=== PATIENT | male | born 1990 | race Two or more races ===

== ENCOUNTER 2023-11-23 12:58 | Emergency (ER) | payer SELFPAY ==
--- NOTE | ~2023-11-23 | CT_ITS ---
EXAMINATION: CT HEAD WITHOUT CONTRAST CLINICAL INFORMATION: Seizure. COMPARISON: No prior imaging is available. TECHNIQUE: Contiguous axial imaging was performed from the skull base to vertex without intravenous administration of contrast. This CT examination was performed using dose optimization techniques as appropriate, variously including the following: *Automated exposure control *Adjustment of mA and/or kV according to patient size (this includes techniques or standardized protocols for targeted exams where dose is matched to indication/reason for exam; i.e. extremities or head) *Use of iterative reconstruction technique DLP: 564 mGy-cm FINDINGS: There is no acute intracranial hemorrhage or abnormal extra-axial collection. No intracranial mass effect or midline shift. Lateral and third ventricles are normal. No hydrocephalus. Ponce-white matter differentiation is preserved and there is no evidence of acute territorial infarct. The calvarium and skull base are intact. Mastoid air cells and middle ear cavities are well aerated. Trace fluid within the right mastoid tip air cells. Moderate paranasal sinus disease primarily affecting the ethmoid air cells and the maxillary sinuses which are partially included within [id number] of this examination. 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 Chronic postoperative changes related to the open repair of a right frontal bone fracture. CT/CT head/brain wo IV con IMPRESSION: Unremarkable examination in that there is no evidence of acute territorial infarct or hemorrhage. No intracranial mass effect or hydrocephalus. There is moderate paranasal sinus disease primarily affecting the ethmoid air cells and maxillary sinuses which are partially included within [id number] of this examination. A perforation of the membranous nasal septum is noted.
[2023-11-23 13:06] VITALS: BP 148/92; PULSE 59; O2SAT 99
[2023-11-23 13:12] VITALS: BP 132/72; PULSE 45; RESP 18; TEMP 36.6; O2SAT 97; BMI 23.3
[2023-11-23 13:16] VITALS: BP 132/72; PULSE 45; RESP 18; TEMP 36.6; O2SAT 97
--- NOTE | 2023-11-23 13:18 | PC.NURSE ---
pt awake, alert and oriented. breathing even and unlabored. skin slighly pale, dry. pt reports he does not remember what happened today, was driving and thinks he may of had a seizure. EMS reports he was found slumped over in car with foot on the brake. pt does report seizure hx and hasn't taken any of his meds in over 6 months. pt denies any pain or SOB at this time. pt denies any SI/HI, drug or alcohol use. seizure pads placed on both sides of stretcher.
--- NOTE | 2023-11-23 13:20 | PC.NURSE ---
pt noted to be bradycardic in the 40's, placed on bedside electrocardiograph technician, sins bradycardia noted.
--- NOTE | 2023-11-23 13:45 | ED.GENADULT ---
HPI - General Adult General Chief complaint: General Medical Stated complaint: FOUND [facility] IN CAR,PT STS TIRED/?SZ PER EMS Time Seen by Provider: 11/23/23 13:29 Source: patient and EMS Mode of arrival: EMS Limitations: no limitations History of Present Illness HPI narrative: 33-year-old male was found in his parked car unconscious patient stated that he been working long shifts at work and feels tired with sleep deprivation, patient is also with known history of seizure taking Topamax 50 mg once daily that he has not been compliant with his medication, declined head injury, declined headache. Patient stated that he did not use any recreational drug. Related Data Previous Rx's Medication Instructions Recorded budesonide-formoterol HFA 80 1 puff inhalation BID #10.2 grams 11/23/23 mcg-4.5 mcg/actuation aerosol inhaler (Symbicort) topiramate 50 mg tablet (Topamax) 50 mg PO ONCE #20 tabs 11/23/23 Allergies Allergy/AdvReac Type Severity Reaction Status Date / Time No Known Allergies Allergy Verified 11/23/23 13:39 Review of Systems Review of Systems: all other systems are reviewed and are negative Constitutional: Reports as per HPI and Reports no additional constitutional complaints Eyes: Reports as per HPI and Reports no additional eye complaints Reports system reviewed and no additional complaints, except as documented Cardiovascular: Reports as per HPI and Reports no additional cardiovascular complaints Respiratory: Reports as per HPI and Reports no additional respiratory complaints Gastrointestinal: Reports as per HPI and Reports no additional gastrointestinal complaints Genitourinary: Reports no additional female genitourinary complaints Musculoskeletal: Reports no additional musculoskeletal complaints Skin/Breast: Reports system reviewed and no additional complaints, except as docu Psychiatric: Reports no additional psychiatric complaints Endocrine: Reports no additional endocrine complaints Hematologic/Lymphatic: Reports no additional hematologic/lymphatic complaints Allergic/Immunologic: Reports no additional allergic/immunologic complaints Reports system reviewed and no additional complaints, except as documented and Reports Abnormal speech present [facility] Social History Social History Smoked in Last 30 Days: Yes Use of substances other than those prescribed or required for medical reasons: No Advance Directives: No Physical Exam ED Vital Signs: Vital Signs - 24 hr 11/23/23 13:12 11/23/23 13:16 11/23/23 15:14 Temperature 97.8 F 97.8 F Pulse Rate 45 L 45 L 45 L Respiratory Rate 18 18 18 Blood Pressure 132/72 132/72 119/70 Pulse Oximetry 97 97 95 Oxygen Delivery Method Room Air Room Air Room Air BMI result Body Mass Index 23.3 Vital signs have been reviewed and appear to be correct. Blood pressure elevated. Heart rate normal. Respiratory rate normal. Temperature normal. Oxygen saturation normal. Appearance: Alert. Oriented X3. No acute distress. Head: Normal external exam. Normocephalic. Atraumatic. No Jiang signs noted. No raccoon eyes noted Eyes: PERRLA. EOMI. Conjunctiva and sclera normal. Eyelids normal. ENT: TM's Normal. Pharynx normal. Uvula midline. Moist mucous membranes. No trismus noted. No drooling noted. No muffled voice noted. Neck: Normal inspection. Neck supple. FROM. No adenopathy. Thyroid Normal. No meningeal signs. No neck mass noted. CVS: Normal heart rate and rhythm. Heart sound normal. No murmurs noted. Pulses normal throughout. Respiratory: No respiratory distress. Painless inspiration. Breath sounds normal. No wheezes/rales/rhonchi noted. Chest nontender. No accessory muscle usage noted or decreased air movement noted. Abdomen: Soft and nontender. Bowel sounds normal in all 4 quadrants. No distention noted. No organomegaly noted. No visible injury noted. Back: No CVA tenderness. Full range of motion noted. Skin: Skin warm and dry. Normal skin color. Normal skin turgor. No rashes/lesions/lacerations noted. Extremities: No lower extremity edema. Extremities exhibit normal range of motion. Extremities nontender. Neuro: Oriented X 3. Cranial nerve exam: II-XII are grossly intact No motor deficit. No sensory deficit. Reflexes normal. Course Reevaluation(s) Reevaluation #1: Patient is AAO x3 refuse the blood workup and wants to be discharged home, patient stated that he was unresponsive in the car because he was tired that he works long shifts was not enough sleep not clear if the patient had seizure and he was in his postictal status, patient admit that he is not compliant with his medication requesting a prescription for Symbicort for his asthma. Patient states that he has to take care of his children, patient was instructed not to to operate a vehicle with his history of seizure and to take his medication specifically for the seizure, also instructed to have a good sleeping. Time: 15:33 Medications Administered Discontinued Medications Generic Name Dose Route Start Last Admin Trade Name Inés PRN Reason Stop Dose Admin Topiramate 50 mg 11/23/23 13:41 11/23/23 15:12 Topiramate 25 Mg Tablet PO 11/23/23 13:42 50 mg ONCE ONE Administration Medical Decision Making Differential Diagnosis Differential Diagnoses: The differential diagnosis associated with the presentation includes ( Seizure, substance abuse, intracranial bleed, anti seizure medication level.) Admission/Observation Consideration of admission/observation: Escalation of care including admission/observation considered Independent Interpretation I performed an independent interpretation of an: CT Scan ( Head:Unremarkable examination in that there is no evidence of acute territorial infarct or hemorrhage. No intracranial mass effect or hydrocephalus. There is moderate paranasal sinus disease primarily affecting the ethmoid air cells and maxillary sinuses which are partially included within field-o) Radiology Impression Discussion of test interpretation with radiology: I have reviewed the radiologist's reading. Discharge Plan Discharge Clinical Impression: Episode of unresponsiveness Patient Disposition: Left Against Medical Advice Instructions: Epilepsy (ED) Additional Instructions: DO NOT DRIVE UNTIL CLEARED BY YOUR NEUROLOGIST. TAKE YOUR MEDICATION PRESCRIBED. FOLLOW-UP WITH YOUR PCP. Prescriptions: New budesonide-formoterol [Symbicort] 80-4.5 mcg/actuation HFA aerosol inhaler 1 puff inhalation BID Qty: 10.2 0RF topiramate [Topamax] 50 mg tablet 50 mg PO ONCE Qty: 20 0RF Stand Alone Forms: Against Medical Advice
[2023-11-23] MEDS: Topiramate 25 MG TABLET 50 MG PO (15:12)
[2023-11-23 15:14] VITALS: BP 119/70; PULSE 45; RESP 18; O2SAT 95
--- NOTE | 2023-11-23 15:19 | PC.NURSE ---
Pt refusing labs, requesting to leave. Dr Banegas to bedside discussing AMA status and warnings/risk, pt continues to request to be discharged. Pt is alert/oriented. x 4, instructed not to drive by Dr Banegas until eval from Neurologist.
== END 2023-11-23 16:21 | disposition left against medical advice (07) ==
PROVIDERS: Emergency Provider Emergency Medicine
DX: R40.4 Transient alteration of awareness (principal); R56.9 Unspecified convulsions; Z72.820 Sleep deprivation
CPT/HCPCS: 70450; 99284